=== PATIENT | female | born 1965 | race Caucasian/White ===

== ENCOUNTER 2016-12-29 12:17 | Emergency (ER) | payer BC, OTHER ==
--- NOTE | 2016-12-29 12:29 | EDM.PDOC ---
ED HPI GENERAL MEDICAL PROBLEM - General Chief Complaint: Gastrointestinal Problem Stated Complaint: ABDOMINAL PAIN Time Seen by Provider: 12/29/16 12:27 Source of Information: Reports: Patient History Limitations: Reports: No Limitations - History of Present Illness INITIAL COMMENTS - FREE TEXT/NARRATIVE: This 51-year-old female is sent in from [facility] after being reviewed by Keisha Castillo. Patient was seen in the clinic early this morning because of severe epigastric pain. She's been having intermittent pain usually goes away but this time it has not. Pain started last evening right after eating her supper meal. Patient reports a little pain prior eating but it was severe after she ate. She did eventually vomit in the middle of the night. Did not have any relief with the vomiting. She has not developed any diarrhea. Feels chilled today with no defined fever. No history of GERD. Did try TUMS with no improvement in symptoms os bowel movement was 2-3 days ago. Patient was found to have a good deal of pain on palpation of the upper abdomen. Questionable palpable mass right upper quadrant. Temperature at that institution was 97.7. Heart rate 74 respiratory was 24 blood pressure was 148/81 saturation 98%. She was given Zofran 4 mg sublingual and came to our hospital per private vehicle. It has been present all night long. She's been curled up in a position with no relief of the pain. No position is comfortable. Nausea has improved with Zofran sublingual. Onset: Sudden Onset Date: 12/28/16 (Started about 1830 hours last evening after eating supper. ) Onset Time: 18:30 Duration: Hour(s): Location: Reports: Abdomen (Epigastrium right upper quadrant.) Quality: Reports: Pressure Severity: Severe Improves with: Reports: None Worsens with: Reports: None Context: Reports: Other (Came on after eating supper meal last night.). Denies : Activity (Nothing seems to make it better or worse.), Exercise, Lifting, Sick Contact, Trauma Associated Symptoms: Reports: Fever/Chills (Chills at times but no fever), Loss of Appetite, Nausea/Vomiting. Denies: Confusion, Chest Pain, Cough, cough w sputum, Diaphoresis, Headaches, Malaise, Seizure, Shortness of Breath, Syncope Treatments PATROL MAN: Reports: Other (see below) (None.) Epigastric Pain Score (Numeric/FACES): 10 - Related Data Allergies Allergy/AdvReac Type Severity Reaction Status Date / Time No Known Allergies Allergy Verified 12/29/16 12:28 Past Medical History - Past Surgical History Female Surgical History: Reports: Tubal Ligation Social & Family History - Living Situation & Occupation Living situation: Reports: Occupation: Employed ED ROS GENERAL - Review of Systems Review Of Systems: See Below Constitutional: Reports: No Symptoms HEENT: Reports: No Symptoms Respiratory: Reports: No Symptoms Cardiovascular: Reports: No Symptoms Endocrine: Reports: No Symptoms GI/Abdominal: Reports: Abdominal Pain, Constipation (See history present illness occasional problems with constipation) : Reports: No Symptoms Musculoskeletal: Reports: No Symptoms Skin: Reports: No Symptoms Neurological: Reports: No Symptoms Psychiatric: Reports: No Symptoms Hematologic/Lymphatic: Reports: No Symptoms Immunologic: Reports: No Symptoms ED EXAM, GI/ABD - Physical Exam Exam: See Below Exam Limited By: No Limitations General Appearance: Alert, WD/WN, Moderate Distress (She is in obvious discomfort.) Eyes: Bilateral: Normal Appearance (No jaundice) Throat/Mouth: Normal Inspection, Normal Oropharynx, Other Head: Atraumatic (Tongue is mildly dry and coated), Normocephalic Neck: Normal Inspection, Supple, Non-Tender, Full Range of Motion. No: Carotid Bruit, Lymphadenopathy (L), Lymphadenopathy (R) Respiratory/Chest: No Respiratory Distress, Lungs Clear, Normal Breath Sounds, No Accessory Muscle Use Cardiovascular: Normal Peripheral Pulses, Regular Rate, Rhythm, No Edema, No Gallop, No Murmur GI/Abdominal: Hypoactive Bowel Sounds (No bowel sounds were identified.), Tenderness (Tenderness in the epigastrium and just to the medial costal margin on the right side.), Guarding ( There is mild guarding in this area.), Other ( Palpable right hemicolon mid right abdomen and up into the hepatic flexure.). No: Rebound, Rigidity, Hepatomegaly, Splenomegaly, Hernia Back Exam: Normal Inspection, Full Range of Motion. No: CVA Tenderness (L), CVA Tenderness (R) Extremities: Normal Inspection, Normal Range of Motion, Non-Tender, No Pedal Edema, Normal Capillary Refill Neurological: Alert, Oriented, CN II-XII Intact, Normal Cognition, Other Psychiatric: Normal Affect (Patient was walking hunched over and slowly.), Normal Mood Skin Exam: Warm, Dry, Intact, Normal Color, No Rash Course - Vital Signs Last Recorded V/S: Last Vital Signs Temp 37.0 C 12/29/16 12:30 Pulse 65 12/29/16 12:30 Resp 16 12/29/16 12:30 BP 157/88 H 12/29/16 12:30 Pulse Ox 100 12/29/16 12:30 - Orders/Labs/Meds Orders: Active Orders 24 hr Category Date Time Status URINALYSIS W/MICROSCOPIC [UA W/MICROSCOPIC] [URIN] Stat Lab 12/29/16 12:37 Uncollected Dextrose 5%-0.9% NaCl [Dextrose 5%-Normal Saline] 1,000 Med 12/29/16 12:45 Active ml IV ASDIRECTED Levofloxacin/Dextrose 5%-Water [Levaquin in D5W 750 MG/ Med 12/29/16 15:55 Active 150 ML] 750 mg Premix Bag 1 bag IV ONETIME NS + KCl 20mEq/L [Normal Saline with 20 mEq KCl] 1,000 Med 12/29/16 16:15 Active ml IV ASDIRECTED Medication Orders Dextrose/Sodium Chloride (Dextrose 5%-Normal Saline) 1,000 mls @ 999 mls/hr IV ASDIRECTED LIZETTE Last Admin: 12/29/16 12:48 Dose: 999 mls/hr Levofloxacin/Dextrose 750 mg/ (Premix) 150 mls @ 100 mls/hr IV ONETIME ONE Stop: 12/29/16 17:24 Potassium Chloride/Sodium Chloride (Normal Saline With 20 Meq Kcl) 1,000 mls @ 150 mls/hr IV ASDIRECTED [facility] Labs: Laboratory Tests 12/29/16 12/29/16 Range/Units 12:40 12:40 WBC 5.39 (3.98-10.04) K/mm3 RBC 4.64 (3.98-5.22) M/mm3 Hgb 14.9 (11.2-15.7) gm/L Hct 44.6 (34.1-44.9) % MCV 96.1 H (79.4-94.8) fl MCH 32.1 (25.6-32.2) pg MCHC 33.4 (32.2-35.5) g/dl RDW Std Deviation 49.3 H (36.4-46.3) fL Plt Count 192 (182-369) K/mm3 MPV 10.5 (9.4-12.3) fl Neutrophils % (Manual) 94 H (40-60) % Band Neutrophils % Not Reportable Lymphocytes % (Manual) 4 L (20-40) % Monocytes % (Manual) 2 (2-10) % Eosinophils % (Manual) Not Reportable Basophils % (Manual) Not Reportable Platelet Estimate Adequate Plt Morphology Comment See note RBC Morph Comment Normal Sodium 145 (136-145) mEq/L Potassium 4.3 (3.5-5.1) mEq/L Chloride 107 (98-107) mEq/L Carbon Dioxide 28 (21-32) mEq/L Anion Gap 14.3 (5-15) BUN 13 (7-18) mg/dL Creatinine 0.8 (0.55-1.02) mg/dL Est Cr Clr Drug Dosing 82.98 mL/min Estimated GFR (MDRD) > 60 (>60) mL/min BUN/Creatinine Ratio 16.3 (14-18) Glucose 167 H (74-106) mg/dL Calcium 9.7 (8.5-10.1) mg/dL Total Bilirubin 2.7 H (0.2-1.0) mg/dL GGT 531 H (5-55) U/L AST 402 H (15-37) U/L ALT 478 H (14-59) U/L Alkaline Phosphatase 329 H (46-116) U/L C-Reactive Protein < 0.2 (<1.0) mg/dL Total Protein 7.8 (6.4-8.2) g/dl Albumin 4.3 (3.4-5.0) g/dl Globulin 3.5 gm/dL Albumin/Globulin Ratio 1.2 (1-2) Lipase 97 (73-393) U/L Meds: Medications Generic Name Dose Route Start Last Admin Trade Name Freq PRN Reason Stop Dose Admin Dextrose/Sodium Chloride 1,000 mls @ 999 mls/hr 12/29/16 12:45 12/29/16 12:48 Dextrose 5%-Normal Saline IV 999 mls/hr ASDIRECTED LIZETTE Administration Levofloxacin/Dextrose 750 mg/ 150 mls @ 100 mls/hr 12/29/16 15:55 Premix IV 12/29/16 17:24 ONETIME ONE Potassium Chloride/Sodium Chloride 1,000 mls @ 150 mls/hr 12/29/16 16:15 Normal Saline With 20 Meq Kcl IV ASDIRECTED LIZETTE Discontinued Medications Generic Name Dose Route Start Last Admin Trade Name Carol PRN Reason Stop Dose Admin Hydromorphone HCl 0.5 mg 12/29/16 12:36 12/29/16 12:48 Dilaudid IVPUSH 12/29/16 12:37 0.5 mg ONETIME ONE Administration Hydromorphone HCl 0.5 mg 12/29/16 15:56 Dilaudid IVPUSH 12/29/16 15:57 ONETIME ONE Metoclopramide HCl 7.5 mg 12/29/16 12:44 12/29/16 12:50 Reglan IVPUSH 12/29/16 12:45 7.5 mg ONETIME ONE Administration - Radiology Interpretation Free Text/Narrative:: 51-year-old female presents to the ED after being seen in peds clinic this morning. She presented with severe epigastric right upper quadrant abdominal pain that has persisted since after eating supper last evening. She is in severe pain and rates it 10-10. Pain does not radiate through to her back. It is felt primarily in the epigastrium. Associated nausea she did vomit once in the middle of the night. Did look at the emesis to significant improvement or blood. She has no history to suggest peptic ulcer disease or GERD. She has a history of intermittent similar type pain that usually lasts an hour or 2 and then goes away suggestive of intermittent biliary colic. She did received Zofran in her to the hospital which did seem to ease her nausea. On examination she is very tender in the epigastrium and medial right upper quadrant. She does have a palpable right hemicolon up to the splenic flexure. Clinically I suspect his biliary colic or stone in the common duct. Plan ultrasound of the liver and gallbladder to be done. Will be given IV D5 normal saline at open. Dilaudid 0.5 mg IV. Reglan 7.5 mg IV. Routine labs including a GGT and a serum lipase ordered. One view of the abdomen x-ray ordered as well. - Re-Assessments/Exams Free Text/Narrative Re-Assessment/Exam: 12/29/16 14:06 KUB reveals moderate amount of stool within the rectal sigmoid and descending colon. No bowel obstruction pattern identified. Lab work reveals a white count of 5.39 with a left shift of 94% neutrophils. Hemoglobin is 14.9 hematocrit is 44.6 platelets 192,000. Sodium is 145 potassium is 4.3 anion gap is 14.3 . Glucose is elevated 167 . Bilirubin is elevated at 2.7 .GGT is 531 .AST is 402. ALT is 478 Alk. phosphatase is 329 . Lipase currently is 97. These values suggest a significant inflammation and likely proximal common bile duct occlusion. Awaiting ultrasound of the liver and gallbladder. 12/29/16 14:43 ultrasound reveals multiple gallstones is identified in the gallbladder with no wall thickening or biliary duct dilatation. Common bile duct measurement is normal. There is a small cyst in the lower pole of the right kidney. Going to ask for a GI consult in this regard. Her labs suggest possible proximal common bile duct obstruction but this is not identified on ultrasound. I am awaiting a phone call back from Dr. Ac at [facility]. 12/29/16 15:[address] Ac injection molding machine setter in [facility] in [place] and he is accepted care of this patient. I also spoke with hospitalist Dr. Gregory and he will be formalizing her admission. We'll send her to the hospital per ambulance. Her pain is coming back and I will therefore repeat Dilaudid 0.5 mg IV.. Weill start Levaquin [address] Gregory`s request. She may not get Flagyl while en route but could be started when she gets to [facility] - Departure Time of Disposition: 16:02 Disposition: DC/Tfer to Acute Hospital 02 Condition: fair Clinical Impression: Cholelithiasis Qualifiers: Cholelithiasis location: bile duct Cholangitis presence: without cholangitis Biliary obstruction: with biliary obstruction Qualified Code(s): K80.51 - Calculus of bile duct without cholangitis or cholecystitis with obstruction Choledocholithiasis with obstruction Qualifiers: Cholecystitis acuity: acute - Discharge Information Referrals: Bambi Csatillo PA-C [Primary Care Provider] - Additional Instructions: Travel to [facility] to be a direct admission to the hospital for gastroenterology consult and potential ERCP first thing in the morning to remove suspect stone from the common bile duct. - My Orders Last 24 Hours: My Active Orders 12/29/16 12:37 URINALYSIS W/MICROSCOPIC [UA W/MICROSCOPIC] [URIN] Stat 12/29/16 12:45 Dextrose 5%-0.9% NaCl [Dextrose 5%-Normal Saline] 1,000 ml IV ASDIRECTED 12/29/16 15:55 Levofloxacin/Dextrose 5%-Water [Levaquin in D5W 750 MG/150 ML] 750 mg Premix Bag 1 bag IV ONETIME 12/29/16 16:15 NS + KCl 20mEq/L [Normal Saline with 20 mEq KCl] 1,000 ml IV ASDIRECTED - Assessment/Plan Last 24 Hours: My Active Orders 12/29/16 12:37 URINALYSIS W/MICROSCOPIC [UA W/MICROSCOPIC] [URIN] Stat 12/29/16 12:45 Dextrose 5%-0.9% NaCl [Dextrose 5%-Normal Saline] 1,000 ml IV ASDIRECTED 12/29/16 15:55 Levofloxacin/Dextrose 5%-Water [Levaquin in D5W 750 MG/150 ML] 750 mg Premix Bag 1 bag IV ONETIME 12/29/16 16:15 NS + KCl 20mEq/L [Normal Saline with 20 mEq KCl] 1,000 ml IV ASDIRECTED
[2016-12-29 12:34] VITALS: BP 157/88
[2016-12-29] MEDS ORDERED: HYDROmorphone 0.5 MG/0.5 ML Syringe IVPUSH ONE ×2 (12:36→15:56)
[2016-12-29] MEDS ORDERED: Metoclopramide 10 MG/2 ML SDV IVPUSH ONE (12:44)
[2016-12-29] MEDS ORDERED: Dextrose 5%-0.9% NaCl 1,000 ML IV SCH (12:45)
--- NOTE | 2016-12-29 13:49 | CR ---
Abdomen: Supine view of the abdomen was obtained. Mild amount of stool is seen within rectosigmoid and descending colon. Bowel gas pattern appears normal. No discrete soft tissue abnormality is seen. Bony structures appear within normal limits for the patient's age. Impression: 1. Unremarkable supine abdominal x-ray. Diagnostic code #1
--- NOTE | 2016-12-29 14:37 | US ---
Limited abdominal ultrasound: Multiple real-time images of the right upper quadrant were obtained. Comparison: Previous right upper quadrant abdominal ultrasound of 09/08/13. Technologist's note: Patient uncooperative, could not follow breathing instructions Pancreas appears within normal limits. Liver shows no focal abnormality. Multiple small abnormalities are seen within the gallbladder which are felt compatible with multiple small layering gallstones. No gallbladder wall thickening is seen. Common bile duct measures normal in size. Right kidney shows a small lower pole cyst measuring 8 mm. Right kidney shows no hydronephrosis. Inferior vena cava is patent. Impression: 1. Multiple small gallstones. No gallbladder wall thickening or biliary duct dilatation is seen. 2. Incidental small cyst within the lower right kidney. Note: Both these findings are an interval change from prior ultrasound exam. Diagnostic code #3
[2016-12-29] MEDS ORDERED: Levofloxacin/Dextrose 5%-Water 750 MG in Premix Bag 1 BAG IV ONE (15:55)
[2016-12-29] MEDS ORDERED: NS + KCl 20mEq/L 1,000 ML IV SCH (16:15)
[2016-12-29] MEDS: Metoclopramide 10 MG/2 ML SDV IVPUSH ONE ×2 (17:26→18:22)
== END 2016-12-29 17:25 ==
LOC: JD.ED 12:17
DX: K80.51 Calculus of bile duct without cholangitis or cholecystitis with obstruction (principal); K80.43 Calculus of bile duct with acute cholecystitis with obstruction
CPT/HCPCS: 36415; 74000; 76705; 80053; 82977; 83690; 85025; 86140; 96361; 96365; 96368; 96375; 96376; 99285; J1170; J1956; J2765; J3480; J7042